=== PATIENT | female | born 1975 | race Caucasian/White ===

== ENCOUNTER 2017-11-04 16:40 | Emergency (ER) | payer OTHER ==
[~2017-11-04] VITALS: Ht 152.4 cm; Wt 78.0 kg
[2017-11-04 16:58] VITALS: BP 134/96; Ht 152.4 cm; Wt 78.0 kg
== END 2017-11-04 19:20 | disposition home or self-care (01) ==
LOC: ED 16:40
DX: L60.0 Ingrowing nail (principal)
CPT/HCPCS: J2001